=== PATIENT | male | born 1970 | race Caucasian/White ===

== ENCOUNTER 2020-03-30 06:22 | Outpatient (REF) | payer BC, SELFPAY ==
[2020-03-30 11:52] LABS: Alanine Aminotransferase 31 U/L (0-40); Albumin Level 4.5 g/dL (3.5-5.0); Alkaline Phosphatase 66 U/L (39-117); Anion Gap 13 (12-20); Aspartate Amino Transferase 20 U/L (5-37); Bilirubin Total 0.4 mg/dL (0.0-1.0); Blood Urea Nitrogen 12 mg/dL (9-16); Calcium 9.3 mg/dL (8.4-10.2); Carbon Dioxide 26 mmol/L (22-29); Chloride 105 mmol/L (96-108); Cholesterol 204 mg/dL; Estimated Glomerular Filt Rate > 60; Glucose Fasting 108 mg/dL (60-99); HDL Cholesterol 44 mg/dL; LDL Cholesterol Calculated 123 mg/dl; Potassium 4.1 mmol/l (3.3-5.1); Sodium 140 mmol/L (135-145); Total Protein 7.4 g/dL (6.5-8.0); Triglycerides 188 mg/dL
[2020-03-30 11:57] LABS: Prostate Specific Antigen Scr 1.84 ng/mL (<0.05-4.0); TSH reflex Free T4 1.96 mIU/mL (0.32-4.0)
[2020-04-04 21:58] LABS: Testosterone, Total 302 ng/dL (250-1100)
== END 2020-03-30 06:23 | disposition home or self-care (01) ==
LOC: HO.HMGCLDS 06:22
PROVIDERS: PCP Nurse Practitioner Family; Visit Provider Nurse Practitioner Family
DX: Z00.00 Encounter for general adult medical examination without abnormal findings (principal); Z12.5 Encounter for screening for malignant neoplasm of prostate; N52.9 Male erectile dysfunction, unspecified
CPT/HCPCS: 80053; 80061; 84153; 84403; 84443

== ENCOUNTER → 2020-04-15 13:11 | Outpatient (BNVA) | payer BC, SELFPAY | PROVIDERS: PCP Nurse Practitioner Family; Visit Provider Physician Assistant | DX: Z76.89 Persons encountering health services in other specified circumstances (principal) ==

== ENCOUNTER 2020-05-04 09:23 | Outpatient (REF) | payer BC, SELFPAY ==
--- NOTE | 2020-05-04 09:44 | FL_ITS ---
EXAMINATION: FL BARIUM SWALLOW CLINICAL INFORMATION: Dysphagia COMPARISON: None TECHNIQUE: Barium swallow examination is performed using fluoroscopic evaluation in addition to multiple fluoroscopic spot views. The patient is imaged both upright and prone and using both thick and thin sulfate along with effervescent granules. Fluoroscopy time: 2.2 minutes DAP: 14.9 Gycm2 Images: 43 FINDINGS: Following oral administration of thick barium and barium-coated turkey in upright view, there is normal propagation bolus from the oral cavity through the pharynx, esophagus into stomach without any evidence of obstruction, narrowing, or stricture. On placing patient prone lying and oral administration of thin barium, there is good distention of the esophagus without any intrinsic or extrinsic compression. There is a small sliding hiatal hernia without gastroesophageal reflux. FL/FL barium swallow IMPRESSION: Small sliding hiatal hernia. No gastroesophageal reflux seen.
== END 2020-05-04 09:24 | disposition home or self-care (01) ==
LOC: HO.XRAY 09:23
PROVIDERS: Visit Provider Nurse Practitioner Family
DX: R13.10 Dysphagia, unspecified (principal)
CPT/HCPCS: 74220

== ENCOUNTER 2020-05-11 08:42 | Day surgery (SDC) | payer BC, SELFPAY ==
[2020-05-03 17:28] VITALS: BMI 28.5
--- NOTE | 2020-05-10 08:46 | HO.ANESPROP2 ---
Documented by User: Tonya Yarbrough 05/10/20 08:47 HPI - Anesthesia Eval Consult details Narrative: 50yo M for Upper Endoscopy and Colonoscopy [facility] Active Problems Active Problems: All Active Problems (Updated 04/19/20 @ 17:48 by Alberto Luis, [facility]) Dysphagia (Acute) Screening for colon cancer (Acute) Screening PSA (prostate specific antigen) (Acute) Physical exam (Acute) Erectile dysfunction (Acute) Dyslipidemia (Acute) Low testosterone (Acute) Family History Family History Mother Diabetes Maternal Grandmother Breast cancer Father Prostate cancer Maternal Aunt Breast cancer Surgical History Surgical History H/O spinal fusion Social History Social History Alcohol intake: current Alcohol intake frequency: a few times a month Smoking Status: Current every day smoker Cigarettes Per Day: 5 Years Smoked: 14 YEARS Smoked in Last 30 Days: Yes Use of substances other than those prescribed or required for medical reasons: No Advance Directives: No Advance Directives Information Provided: No Advance Directives on File: No Recently lost weight without trying: No Current occupational status: employed Meds Allergies Allergy/AdvReac Type Severity Reaction Status Date / Time No Known Allergies Allergy Verified 03/25/20 14:34 Exam Exam Date and Time: May 10, 2020 0846 Height,Weight and Vital Signs: Height 6 ft Weight 95.254 kg Pertinent Lab Results Pertinent Lab Results: Laboratory Tests 03/30/20 06:26 Sodium 140 Potassium 4.1 Chloride 105 Carbon Dioxide 26 BUN 12 Creatinine 1.23 Assessment and Plan Assessment Anesthesia Assessment: Chart Reviewed Documented by User: Sreekanth Merchant 05/11/20 09:07 PMFSH Family History Family History Mother Diabetes Maternal Grandmother Breast cancer Father Prostate cancer Maternal Aunt Breast cancer Surgical History Surgical History H/O spinal fusion Social History Social History Alcohol intake: current Alcohol intake frequency: a few times a month Smoking Status: Current every day smoker Cigarettes Per Day: 5 Years Smoked: 14 YEARS Smoked in Last 30 Days: Yes Use of substances other than those prescribed or required for medical reasons: No Advance Directives: No Advance Directives Information Provided: No Advance Directives on File: No Recently lost weight without trying: No Current occupational status: employed Meds Allergies Allergy/AdvReac Type Severity Reaction Status Date / Time No Known Allergies Allergy Verified 03/25/20 14:34 Exam Airway Mallampati Class: II TM Dist: >3cm Neck ROM: Full
[2020-05-11 08:49] VITALS: BP 101/66; PULSE 71; RESP 20; TEMP 36.6; O2SAT 96
[2020-05-11] MEDS: Lactated Ringers 1,000 ML 100 ML IVCONT (09:07)
--- NOTE | 2020-05-11 10:19 | P.OP_ITS ---
Operative Note Operative Note Date of Service: 05/11/20 Narrative: Pre-op diagnosis: Colon cancer screening, dysphagia, atypical chest pain Post-op diagnosis: other (colon polyps, diverticulosis, esophageal stricture, hiatal hernia, gastritis, duodenitis with duodenal nodule) Procedure: FLEXIBLE TRANSORAL UPPER GASTROINTESTINAL ENDOSCOPY WITH BIOPSIES AND ESOPHAGEAL BALLOON DILATION AND COLONOSCOPY TO CECUM WITH BIOPSY, SNARE POLYPECTOMY AND SUBMUCOSAL INJECTION UPPER ENDOSCOPY Consent: Indications for the procedure and potential complications of bleeding, perforation, reaction to medications and missed diagnosis were discussed with the patient and informed consent was obtained. Instrument: Olympus GIF H 190 mid size upper endoscope Monitoring: Vital signs and clinical assessment, continuous EKG monitoring, Pulse oximetry, Carbon Dioxide monitoring and blood pressure monitoring were done throughout the procedure. Procedure: The patient was placed in the left lateral decubitis position and pre-procedure medications were administered and a bite block was placed. The endoscope was inserted into the mouth and advanced under direct vision to the third part of duodenum. A careful inspection was made as the upper endoscope was withdrawn including a retroflexed examination of the proximal stomach; Findings and interventions are described below. Findings: Larynx: Normal Esophagus: Tortuous esophagus with increased tertiary contractions - biopsies obtained from proximal esophagus to check for EOE. GE junction at 36 cms, hiatla hernia 36 to 39 cms. Focal stricture at GE junction with focal inflammation - biopsies obtained. Stricture was dilated with 18 and 19 mm CRE balloon for 60 seconds at each level. . Stomach: Mild gastric erythema. Biopsies were obtained. Grade 3 flap valve on retroflexed examination of the cardia. Duodenum: Duodenitis in the bulb with benign-appearing 4-5 mm nodules - biopsy. Normal descending duodenum Intervention: Biopsies as noted above COLONOSCOPY PROCEDURE NOTE Consent: Indications for the procedure and potential complications of bleeding, perforation, reaction to medications and missed diagnosis were discussed with the patient and informed consent was obtained. Instrument: Olympus PCF H 190 L variable stiffness pediatric colonoscope Monitoring: Vital signs and clinical assessment, intermittent blood pressure monitoring, continuous EKG monitoring, Pulse oximetry and Carbon Dioxide monitoring were done throughout the procedure. Colon withdrawl time was 30 minutes. Procedure: The patient was placed in the left lateral decubitis position and pre-procedure medications were administered. After a digital rectal examination of the ano-rectum, the video colonoscope was inserted into the rectum and advanced through the colon to the cecum. The colonoscope was slowly withdrawn in a retrograde panoramic fashion and the colon mucosa was carefully examined including a retroflexed view of the rectum. Findings and interventions are described below. Procedure Difficulty: : Without difficulty Findings: Terminal Ileum: Not evaluated Cecum: Normal Ascending Colon: A 12-15 mm flat polyp raised with 10 cc of Orise solution and removed with a hot snare. Transverse Colon: Normal Descending Colon: Moderate diverticulosis Sigmoid Colon: A 4-5 mm sessile polyp removed with the cold biopsy. Severe diverticulosis with luminal narrowing. Rectum: Two 10-12 mm sessile polyps removed with the hot snare Ano-rectum: Normal Colon preparation: Good after copious irrigation Impression and Post Procedure Diagnosis: Endoscopy Findings: ESOPHAGUS: Tortuous esophagus with increased tertiary contractions - biopsies obtained from proximal esophagus to check for EOE. GE junction at 36 cms, hiatla hernia 36 to 39 cms. Focal stricture at GE junction with focal in flammation - biopsies obtained. Stricture was dilated with 18 and 19 mm CRE balloon for 60 seconds at each level. . STOMACH: Gastritis DUODENUM: Duodenal nodules with duodenitis in the bulb Colonoscopy Findings: Four small to medium sized polyps removed Moderate to severe diverticulosis seen in the left colon Plan: Await pathology results. Pt was advised to start Omeprazole 20 mg every morning - prescription was sent to his preferred pharmacy. Patient has an appointment on 05/20/20 in the GI Clinic with JESUSITA Marques. Repeat Colonoscopy interval based on path results - in 3 years if polyps are adenomatous and 10 years if polyps are hyperplastic. Above findings were reviewed with the patient and GERD, colon polyps and diverticulosis handouts were given in the discharge area Surgeon: Jeramy León MD Anesthesia: MAC (FARIDA Carranza) Estimated blood loss (mL): 0 Pathology: other (a: duodenal nodules b: gastric antrum bx's r/o h. pylori c: esophageal stricture bx's d: proximal esophagus bx's r/o EOE e: ascending colon polyp *orise gel used* f: sigmoid p) Condition: stable Disposition: PACU
--- NOTE | 2020-05-11 10:19 | MHC.SHP ---
Pre-Procedural Eval Section A The patient is an INPATIENT: No The History & Physical has been completed within 30 days and I have reviewed it.: Yes Section B Chief Complaint: Screening Details of Present Illness: Colon cancer screening, dysphagia Allergies: Allergies Allergy/AdvReac Type Severity Reaction Status Date / Time No Known Allergies Allergy Verified 03/25/20 14:34 Review of Systems Sugical H&P ROS: Negative: Constitution, Cardiovascular and Respiratory and Yes, Specify: Gastrointestinal (dysphagia with atypical chest pain) Exam Surgical H&P Exam: Normal: Heart, Normal: Lungs, Normal: Extremities and Normal: Abdomen Plan Diagnosis/Plan: Change (EGD was added due to symptoms of dysphagia) I have reviewed the history and physical and performed a pertinent physical examination on my patient. No changes have occurred unless specified.
[2020-05-11 11:43] VITALS: BP 110/54; PULSE 68; RESP 16; TEMP 36.2; O2SAT 98
[2020-05-11 11:58] VITALS: BP 122/67; PULSE 58; RESP 18; TEMP 36.2; O2SAT 99
--- NOTE | 2020-05-11 13:14 | HO.POSTANES ---
Post Anesthesia Evaluation Post Anesthesia Evaluation Vital Signs: Vital Signs Temp Pulse Resp BP Pulse Ox 05/11/20 11:58 97.1 F 58 18 122/67 99 05/11/20 11:43 97.1 F 68 16 110/54 L 98 05/11/20 08:49 98 F 71 20 101/66 96 Anesthesia: Monitored Mental Status: Awake Pain Control: Satisfactory Nausea/Vomiting: None Hydration: Adequate Anesthesia-Related Issues: No Anes. Related Issues
== END 2020-05-11 12:30 | disposition home or self-care (01) ==
PROVIDERS: PCP Nurse Practitioner Family; Visit Provider Internal Medicine Gastroenterology
PROC: (CPT 45381; principal; 2020-05-11 09:50)
DX: Z12.11 Encounter for screening for malignant neoplasm of colon (principal); D12.2 Benign neoplasm of ascending colon; K63.5 Polyp of colon; K57.30 Diverticulosis of large intestine without perforation or abscess without bleeding; K22.2 Esophageal obstruction; K29.80 Duodenitis without bleeding
CPT/HCPCS: 45381; 45385; 45380; 43249; 43239; 88305; 88342; C1726

== ENCOUNTER → 2020-05-20 11:00 | Outpatient (BNVA) | payer BC, SELFPAY | PROVIDERS: PCP Nurse Practitioner Family; Visit Provider Physician Assistant ==

== ENCOUNTER → 2020-06-02 09:31 | Outpatient (BNVA) | payer BC, SELFPAY | PROVIDERS: PCP Nurse Practitioner Family; Visit Provider Urology ==

== ENCOUNTER 2021-09-22 12:39 | Outpatient (REF) | payer BC, SELFPAY ==
[2021-09-22 14:00] LABS: Appearance Urine CLEAR; Color Urine YELLOW; Glucose Urine UA NEG (NEG); Leukocyte Esterase Urine NEG (NEG); Nitrite Urine NEG (NEG); PH 5.5 (5.0-8.0); Specific Gravity - Urine 1.025 (1.005-1.025); Urine Blood NEG (NEG); Urine Ketones NEG (NEG); Urine Protein NEG (NEG-TRACE)
[2021-09-22 14:40] LABS: Alanine Aminotransferase 32 U/L (0-40); Albumin Level 4.3 g/dL (3.5-5.0); Alkaline Phosphatase 66 U/L (39-117); Anion Gap 13 (12-20); Aspartate Amino Transferase 19 U/L (5-37); Bilirubin Total 0.3 mg/dL (0.0-1.0); Blood Urea Nitrogen 15 mg/dL (9-16); Calcium 9.2 mg/dL (8.4-10.2); Carbon Dioxide 23 mmol/L (22-29); Chloride 106 mmol/L (96-108); Cholesterol 174 mg/dL; Estimated Glomerular Filt Rate > 60; Glucose Fasting 106 mg/dL (60-99); HDL Cholesterol 36 mg/dL; LDL Cholesterol Calculated 85 mg/dl; Potassium 4.1 mmol/L (3.3-5.1); Sodium 138 mmol/L (135-145); Total Protein 7.3 g/dL (6.5-8.0); Triglycerides 265 mg/dL
[2021-09-22 15:02] LABS: Prostate Specific Antigen Scr 1.53 ng/mL (<0.05-4.0); TSH reflex Free T4 1.47 uIU/mL (0.32-4.0)
== END 2021-09-22 12:40 | disposition home or self-care (01) ==
LOC: HO.HMGCLDS 12:39
PROVIDERS: PCP Nurse Practitioner Family; Visit Provider Nurse Practitioner Family
DX: Z00.00 Encounter for general adult medical examination without abnormal findings (principal); Z12.5 Encounter for screening for malignant neoplasm of prostate
CPT/HCPCS: 36415; 80053; 80061; 81003; 84153; 84443

== ENCOUNTER 2021-12-01 11:53 | Outpatient (REF) | payer BC, SELFPAY ==
--- NOTE | ~2021-12-01 | XR_ITS ---
EXAMINATION: XR FOOT, LEFT CLINICAL INFORMATION: Assess for retained foreign body. COMPARISON: None TECHNIQUE: AP, lateral, and oblique views of the left foot. FINDINGS: There is no acute fracture or dislocation. The joint spaces are unremarkable. The tarsal bones are normally aligned. The soft tissues are unremarkable. No radiopaque foreign body. XR/XR foot LT min 3V IMPRESSION: Unremarkable left foot. No radiopaque foreign body.
[2021-12-03 19:07] LABS: A. Phagocytphilium DNA,RT-PCR NOT DETECTED (NOT DETECTED); Babesia Microti DNA, RT-PCR NOT DETECTED (NOT DETECTED); Borrelia Miyamotoi,DNA RT-PCR NOT DETECTED (NOT DETECTED); E.Chaffeensis DNA RT-PCR NOT DETECTED (NOT DETECTED); Lyme(Borrelia ssp)DNA RT-PCR NOT DETECTED (NOT DETECTED)
[2021-12-05 11:16] LABS: Source-Tick borne disease WHOLE BLOOD
== END 2021-12-01 11:54 | disposition home or self-care (01) ==
LOC: HO.HMGCX 11:53
PROVIDERS: Absent Provider Physician Assistant; PCP Nurse Practitioner Family; Visit Provider Nurse Practitioner Family
DX: Z18.9 Retained foreign body fragments, unspecified material (principal); T14.8XXA Other injury of unspecified body region, initial encounter; W57.XXXA Bitten or stung by nonvenomous insect and other nonvenomous arthropods, initial encounter
CPT/HCPCS: 36415; 73630; 87798; 87801

== ENCOUNTER 2021-12-24 06:31 | Outpatient (REF) | payer BC, SELFPAY ==
[2021-12-24 11:37] LABS: Alanine Aminotransferase 37 U/L (0-40); Albumin Level 4.5 g/dL (3.5-5.0); Alkaline Phosphatase 64 U/L (39-117); Anion Gap 14 (12-20); Aspartate Amino Transferase 23 U/L (5-37); Bilirubin Total 0.6 mg/dL (0.0-1.0); Blood Urea Nitrogen 15 mg/dL (9-16); Calcium 9.5 mg/dL (8.4-10.2); Carbon Dioxide 25 mmol/L (22-29); Chloride 105 mmol/L (96-108); Cholesterol 197 mg/dL; Estimated Glomerular Filt Rate > 60; Glucose Fasting 123 mg/dL (60-99); HDL Cholesterol 39 mg/dL; LDL Cholesterol Calculated 115 mg/dl; Potassium 4.3 mmol/L (3.3-5.1); Sodium 140 mmol/L (135-145); Total Protein 7.3 g/dL (6.5-8.0); Triglycerides 217 mg/dL
== END 2021-12-24 06:32 | disposition home or self-care (01) ==
LOC: HO.HMGCLDS 06:31
PROVIDERS: PCP Nurse Practitioner Family; Visit Provider Nurse Practitioner Family
DX: E78.5 Hyperlipidemia, unspecified (principal)
CPT/HCPCS: 36415; 80053; 80061

== ENCOUNTER 2023-01-22 12:49 | Outpatient (AMB) | payer OTHER, SELFPAY ==
[2023-01-22 13:01] VITALS: BP 120/70; PULSE 65; BMI 29.3
--- NOTE | 2023-01-22 13:01 | MHC.OFFVIS ---
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 He subsequently EKG in August which showed incomplete right bundle-branch block. He is referred for further evaluation. He said last March just prior to his with occasion he was with his and he had 3 beers and subsequently went out and had 3 draws of marijuana and subsequently came into the house and started not feeling well. His notices that he turned pale and subsequently diaphoretic and was mumbling his words. He subsequently felt like is passing out. He then was laid on the floor he does not recall this. However is called 911 and by the time he woke up he saw his sitting on him on but had weird sensation as she was very far off. However by the time paramedics arrived he had regained full consciousness. Decided not to go to the hospital at that point time. Since then he has not had similar event. He said he rarely uses marijuana and alcohol together. However he does have alcohol use which he did yesterday without any symptoms. He has not had any recurrent syncopal episodes. Denies any exertional chest pain. He says since he has been a child he gets intermittent sharp chest pain that catches his breath and last for few seconds. He does not smoke. No other significant risk factors for coronary artery disease. 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 [facility] Medical History Paronychia Barretts esophagus GERD (gastroesophageal reflux disease) Surgical History Hx of colonoscopy Hx of endoscopy H/O spinal fusion Family History Mother Diabetes Maternal Grandmother Breast cancer Father Prostate cancer Maternal Aunt Breast cancer Social History Household Members: Spouse Alcohol intake: current Alcohol intake frequency: a few times a month Patient Tobacco Use Status: Former Tobacco user Quit Date: 04/02/2021 Years Smoked: 14 YEARS e-Cigarette/Vaping Use: Never Used Second Hand Smoke Exposure: No Current occupational status: employed Cognitive needs: No Hearing needs: No Vision needs: No Review of Systems Const Denies chills, Denies daytime sleepiness, Denies fatigue, Denies fever(s), Denies frequent falls, Denies poor appetite, Denies snoring, Denies stops breathing during sleep, Denies weakness, Denies weight gain and Denies weight loss Eyes Denies loss of vision ENT Denies dizziness and Denies hearing loss Card Denies chest pain, Denies claudication, Denies leg edema, Denies lightheadedness, Denies palpitations, Denies dyspnea, Denies dyspnea on exertion and Denies orthopnea Resp Denies cough, Denies excessive phlegm production, Denies dyspnea, Denies dyspnea on exertion, Denies snoring and Denies wheezing GI Denies abdominal pain, Denies hematochezia, Denies change in bowel habits, Denies nausea and Denies vomiting Denies dysuria and Denies urinary frequency Musc Denies arthralgias, Denies muscle weakness, Denies numbness and Denies other (frequent falls) Skin/Breast Denies nail changes and Denies rash Neuro Denies Abnormal speech present, Denies dizziness, Denies frequent falls, Denies loss of vision, Denies memory loss, Denies numbness and Denies weakness Psych Denies depression and Denies memory loss Endo Denies fatigue and Denies palpitations Ambrose/Lymph Reports easy bruising and Reports other (anemia) Aller/Immun Denies wheezing Physical Exam Vital Signs: Last Vital Signs Pulse 65 01/22/23 13:01 BP 120/70 01/22/23 13:01 BMI result Body Mass Index 29.3 Const General: cooperative, comfortable, no acute distress, alert, awake and Physically active Nutritional Appearance: overweight Orientation/consciousness: patient oriented x3 Limitations: no limitations HEENT Head: Yes normocephalic and Yes atraumatic Neck Neck: Yes trachea midline, Yes supple and Yes no JVD Resp Effort & Inspection: normal respiratory effort Auscultation: clear to auscultation bilaterally Cardio Jugular venous distension: no JVD Palpation: normal PMI Rate: regular rate Rhythm: regular rhythm Heart sounds: S1 normal heart sound present, S2 normal heart sound present, no click, no gallops, no murmurs and no rubs GI Auscultation: normal bowel sounds Skin General skin exam: no rashes or lesions noted Neuro General: patient oriented x3 and no focal motor deficits Speech: No Abnormal speech present Extrem General: Yes no clubbing, cyanosis or edema Office Procedures EKG Details: EKG shows normal sinus rhythm with normal EKG [id number], Complete Assessment & Plan Assessment & Plan (1) Syncope: Code(s): R55 - Syncope and collapse Plan: Syncopal episode in this middle-aged man, most likely vasovagal/orthostatic with combined use of both alcohol and marijuana causing visitation probably from dehydration with all of these factors coming together. This mechanism was discussed with him. He has EKG shows incomplete right bundle-branch block which is not significantly pathologic and today's EKG showing normal sinus rhythm with normal EKG with normal axis and normal intervals. He has had no recurrent episodes since then. I would suggest echocardiogram to evaluate for cardiac structure and function. If this is negative no further workup is indicated unless he has recurrent episodes. Advised to maintain adequate hydration. Advised to avoid alcohol marijuana use to the other. We discussed about further risk stratification with coronary calcium score. He will think about it. Will follow up in the clinic if need be. Thank you for allowing me to partake in his care Orders: Orders CA echo transthoracic complete Today R55 - Syncope and collapse Coding Level of Care Code New Pt Level 4 (63740) Diagnoses Syncope R55 CPT Codes EKG - CPT: 31562-[id number], Complete ([id number])
== END 2023-01-22 13:39 | disposition home or self-care (01) ==
PROVIDERS: PCP Nurse Practitioner Family; Visit Provider Internal Medicine Cardiovascular Disease
DX: R55 Syncope and collapse (principal)
CPT/HCPCS: 93010; 99204

== ENCOUNTER → 2023-01-22 12:49 | Outpatient (BNVA) | payer OTHER, SELFPAY | PROVIDERS: PCP Nurse Practitioner Family; Visit Provider Internal Medicine Cardiovascular Disease | DX: R55 Syncope and collapse (principal) | CPT/HCPCS: 93005 ==

== ENCOUNTER 2023-07-07 06:48 | Outpatient (REF) | payer BC, SELFPAY ==
[2023-07-07 11:06] LABS: Appearance Urine Clear; Color Urine Yellow; Glucose Urine UA Negative (Negative); Leukocyte Esterase Urine Negative (Negative); Nitrite Urine Negative (Negative); Specific Gravity - Urine 1.015 (1.005-1.025); Urine Blood Negative (Negative); Urine Ketones Negative (Negative); Urine Protein Negative (Neg-Trace)
[2023-07-07 11:22] LABS: Basophils Absolute Auto 0.1 X10*3/uL (0.0-0.2); Basophils Percent Auto 0.6 % (0-2); Eosinophils Absolute Auto 0.2 X10*3/uL (0.0-0.4); Eosinophils Percent Auto 1.9 % (0-4); Hematocrit 46.7 % (42.0-52.0); Hemoglobin 15.3 g/dl (14.0-18.0); Imm Gran Abs Auto 0.04 X10*3/uL (0.00-0.03); Imm Gran Pct Auto 0.5 % (0.0-0.4); Lymphocytes Absolute Auto 2.3 X10*3/uL (1.2-4.9); Lymphocytes Percent Auto 27.3 % (20-40); MANUAL DIFF FLAG NO; Mean Corpuscular HGB Conc 32.8 g/dl (31.0-36.0); Mean Corpuscular Hemoglobin 28.8 pg (27.0-33.0); Mean Corpuscular Volume 87.8 fL (80.0-98.0); Mean Platelet Volume 11.2 fL (9.4-12.4); Monocytes Absolute Auto 0.6 X10*3/uL (0.1-1.2); Monocytes Percent Auto 7.7 % (2-11); Neutrophils Absolute Auto 5.1 x10*3/uL (2.0-8.3); Platelet Count 257 X10*3/uL (160-400); Red Blood Count 5.32 X10*6/uL (4.60-5.80); Red Cell Distribution Width 13.2 % (11.0-16.0); White Blood Count 8.3 X10*3/uL (4.8-10.8)
[2023-07-07 11:42] LABS: Alanine Aminotransferase 25 U/L (0-40); Albumin Level 4.2 g/dL (3.5-5.0); Alkaline Phosphatase 66 U/L (39-117); Anion Gap 12 (12-20); Aspartate Amino Transferase 21 U/L (5-37); Bilirubin Total 0.7 mg/dL (0.0-1.0); Blood Urea Nitrogen 12 mg/dL (9-16); Calcium 9.4 mg/dL (8.4-10.2); Carbon Dioxide 26 mmol/L (22-29); Chloride 106 mmol/L (96-108); Cholesterol 194 mg/dL (<200); Estimated Glomerular Filt Rate > 60; Glucose Fasting 111 mg/dL (60-99); HDL Cholesterol 35 mg/dL (>40); LDL Cholesterol Calculated 121 mg/dL (<100); Potassium 3.9 mmol/L (3.3-5.1); Sodium 140 mmol/L (135-145); Total Protein 7.5 g/dL (6.5-8.0); Triglycerides 194 mg/dL (<150)
[2023-07-07 12:00] LABS: TSH reflex Free T4 1.26 uIU/mL (0.32-4.0)
== END 2023-07-07 06:49 | disposition home or self-care (01) ==
LOC: HO.HMGCLDS 06:48
PROVIDERS: PCP Nurse Practitioner Family; Visit Provider Nurse Practitioner Family
DX: Z13.6 Encounter for screening for cardiovascular disorders (principal); R73.03 Prediabetes
CPT/HCPCS: 36415; 80053; 80061; 81003; 84443; 85025

== ENCOUNTER 2023-11-21 07:46 | Outpatient (AMB) | payer SELFPAY ==
--- NOTE | 2023-11-21 07:21 | MHC.PC.OV ---
Intake Visit Reasons: blood work result questions from 07/12/23 Allergies No Known Allergies Allergy (Verified 09/26/22 16:59) Tobacco use date assessed: 09/26/22 Dental Screening Dental Screen Date: 09/26/22 HPI blood work result questions from 07/12/23 HPI Details Pt is prediabetic, last A1C was 6.4. Will order labs. Denies polyuria, polydipsia, and neuropathy. Dyslipidemia: Will order labs. Pt is following up with urology due to enlarged prostate. PSA was mentioned in their note, though I am unable to find results, will track this down. Will order PSA myself as well. [facility] Medical History Microscopic hematuria Paronychia Barretts esophagus GERD (gastroesophageal reflux disease) Surgical History History of vasectomy Hx of colonoscopy Hx of endoscopy H/O spinal fusion Family History Mother Diabetes Maternal Grandmother Breast cancer Father Prostate cancer Maternal Aunt Breast cancer Social History Household Members: Spouse Alcohol intake: current Alcohol intake frequency: a few times a month Patient Tobacco Use Status: Former Tobacco user Years Smoked: 14 YEARS e-Cigarette/Vaping Use: Never Used Second Hand Smoke Exposure: No Current occupational status: employed Cognitive needs: No Hearing needs: No Vision needs: No Questionnaire Thrive Questionnaire Date Thrive assessed: 03/31/21 VICTORIA-7 AMB Questionnaire VICTORIA-7 Date VICTORIA - 7 assessed: 03/31/21 Source: Developed by Drs. Josh Martinez, Luz Mejia, Cyril Davidson and colleagues, with an educational dayan from [employer]. Review of Systems Const Reports as per [facility] Physical exam (Primary Care) Tobacco/Smoking Status: Tobacco use Status Tobacco use date assessed 09/26/22 11/21/23 07:22 Patient Tobacco Use Status Former Tobacco user 11/21/23 07:22 e-Cigarette/Vaping Use Never Used 11/21/23 07:22 Thrive Assessment: Date of Thrive Assessment Date Thrive assessed 03/31/21 11/21/23 07:22 Const General: cooperative Orientation/consciousness: patient oriented x3 Neuro General: patient oriented x3 Psych Appearance: grossly normal Mental Status: mental status grossly normal Speech and movement: Clear speech present Affect: normal affect Attitude: cooperative Thought process: Normal thought process present Thought content: Normal thought content present Insight: Good insight present (Psych) Judgement: Good judgement present (Psych) Telehealth Telehealth Telehealth Platform: [facility] Location of provider rendering services: practice address Location of patient: address on file Patient Identification confirmed using: Name, : Yes Telehealth method: video Patient verbally consented to treatment: Yes Patient verbally consented to billing insurance company: Yes Patient informed of any privacy concerns related to visit: Yes Minutes spent on Phone/Video with Pt.: 10 Assessment and Plan Assessment & Plan (1) Dyslipidemia: Code(s): E78.5 - Hyperlipidemia, unspecified Plan: Labs ordered (2) Screening PSA (prostate specific antigen): Code(s): Z12.5 - Encounter for screening for malignant neoplasm of prostate Plan: PSA ordered (3) Prediabetes: Code(s): R73.03 - Prediabetes Plan: Labs ordered Plan The patient agreed to the use of a medical claims specialist for this encounter. Scribed for PEÑA Wetzel by Shea Longoria medical claims specialist, on 11/21/2023 at 07:20 EST. Orders: Orders Complete Blood Count Auto Diff Today E78.5 - Hyperlipidemia, unspecified TSH reflex Free T4 Today E78.5 - Hyperlipidemia, unspecified Comprehensive [place]. Panel Fast Today E78.5 - Hyperlipidemia, unspecified Lipid Panel Today E78.5 - Hyperlipidemia, unspecified UA CC w/rflx Micro + Cult Today E78.5 - Hyperlipidemia, unspecified Prostate Specific Antigen Scr Today Z12.5 - Encounter for screening for malignant neoplasm of prostate Hemoglobin A1c Today R73.03 - Prediabetes Coding Level of Care Code Tele Est Pt Level 3 (47684) Diagnoses Dyslipidemia E78.5 Screening PSA (prostate specific antigen) Z12.5 Prediabetes R73.03
== END 2023-11-21 07:47 | disposition home or self-care (01) ==
LOC: HO.HMGC 07:46
PROVIDERS: PCP Nurse Practitioner Family; Visit Provider Nurse Practitioner Family
DX: E78.5 Hyperlipidemia, unspecified (principal); Z12.5 Encounter for screening for malignant neoplasm of prostate; R73.03 Prediabetes
CPT/HCPCS: 99441

== ENCOUNTER 2024-04-10 16:00 | Outpatient (AMB) | payer OTHER, SELFPAY ==
[2024-04-10 16:07] VITALS: BP 122/70; PULSE 78; O2SAT 98; BMI 27.8
--- NOTE | 2024-04-10 16:07 | MHC.PC.OV ---
Vital Signs 04/10/24 16:07 Height 6 ft Weight 205 lb BMI 27.8 BP 122/70 Blood Pressure Location Lt brachial Position Sitting Pulse 78 Pulse Source Pulse Oximeter Pulse Oximetry (%) 98 Oxygen Delivery Method Room Air Intake Visit Reasons: annual Intake Note: pt is here for annual exam Rn Mobile Required: No Accompanied by: Self / Same As Patient Allergies No Known Allergies Allergy (Verified 04/10/24 16:07) Medication List - Last Reconciled 04/10/24 by ZULEYKA Meeks pantoprazole 40 mg PO DAILY Tobacco use date assessed: 04/10/24 Dental Screening Dental Screen Date: 04/10/24 Did you have a dental visit in the last 12 months?: Yes Did you have a dental problem in the last 6 months where you did not have access to dental care?: No Was dental information given to patient?: Patient has dentist HPI annual HPI Details History of Present Illness The patient is a 53-year-old male presenting for an annual physical examination. During the visit, he reported experiencing erectile dysfunction (ED) symptoms. The history indicates he has not seen his urologist in some time. The patient denies any other related urinary symptoms. Visible Measures Maintenance colon screen is up to date refuses flu vaccine Social History Review of Systems - Cardiovascular: Denies chest pain. - Respiratory: Denies shortness of breath. - Gastrointestinal: Denies blood in stool, constipation, diarrhea. - Genitourinary: Denies urinary symptoms but reports erectile dysfunction. Physical Exam General: Cooperative, healthy appearing, comfortable, no acute distress and well developed Orientation: Patient oriented x3 Limitations: No limitations Head: Normal to inspection Ears: Hearing grossly normal bilaterally Nose: Normal external nose present Face and sinus: Normal facial exam Eyes: Appearance normal, both eyes and all related structures Neck: Normal visual inspection and Yes full ROM Respiratory: Normal respiratory effort and able to speak in complete sentences. Clear to auscultation bilaterally Cardiovascular: Regular rate and rhythm. Normal S1 and S2 GI: Normal to inspection. Soft to palpation and nontender Skin: No rashes. skin tags noted, mostly to bilat axillary regions (range in size) Neuro: Patient oriented x3 Extremities: Normal to inspection Results Plan - Order a Prostate-Specific Antigen PSA) test to assess prostate health as the patient has not consulted with his urologist for some time. - Order a testosterone level test due to reported erectile dysfunction. Patient was informed and verbally consented to the use of an ambient scribe for clinic note documentation during this visit. Discussion Notes Patient Instructions - Complete the ordered laboratory tests for PSA and testosterone. - Follow up with the results of the tests as directed. - Schedule an appointment with a urologist for further evaluation if advised after the test results. COUNTS INCLUDE 234 BEDS AT THE [facility] Medical History Microscopic hematuria Paronychia Barretts esophagus GERD (gastroesophageal reflux disease) Surgical History History of vasectomy Hx of colonoscopy Hx of endoscopy H/O spinal fusion Family History Mother Diabetes Maternal Grandmother Breast cancer Father Prostate cancer Maternal Aunt Breast cancer Social History Household Members: Spouse Alcohol intake: current Alcohol intake frequency: a few times a month Patient Tobacco Use Status: Former Tobacco user Years Smoked: 14 YEARS e-Cigarette/Vaping Use: Never Used Second Hand Smoke Exposure: No Current occupational status: employed Cognitive needs: No Hearing needs: No Vision needs: No Questionnaire PHQ-9 Over the last 2 weeks, how often have you been bothered by any of the following problems? 1. Little interest or pleasure in doing things: not at all 2. Feeling down, depressed, or hopeless: not at all 3. Trouble falling or staying asleep, or sleeping too much: not at all 4. Feeling tired or having little energy: not at all 5. Poor appetite or overeating: not at all 6. Feeling bad about yourself - or that you are a failure or have let yourself or your family down: not at all 7. Trouble concentrating on things, such as reading the newspaper or watching television: not at all 8. Moving or speaking so slowly that other people could have noticed. Or the opposite - being so fidgety or restless that you have been moving around a lot more than usual: not at all 9. Thoughts that you would be better off or of hurting yourself in some way: not at all Total score: 0 Depression Screening Interpretation: Negative Depression Screening Done: Yes 50226 - PHQ-9 Billing: Yes Source: Developed by Drs. Josh Martinez, Luz Mejia, Cyril Davidson and colleagues, with an educational dayan from [employer]. Thrive Questionnaire Date Thrive assessed: 04/10/24 I am a: Patient What is your living situation today?: I have a steady place to live Within the past 12 months, did the food you bought not last and you didn't have the money to get more?: Sometimes True Within the past 12 months, did you worry whether your food would run out before you got money to buy more?: Sometimes True Do you have trouble paying for medicines?: Yes Do you have trouble getting transportation to medical appointments?: No Do you have trouble paying your heating and electricity bill?: No Do you have trouble taking care of your child, family member or friend?: No Do you have trouble with day-to-day activities such as bathing, preparing meals, shopping, managing finances, etc.?: No Are you currently unemployed and looking for a job?: No Are you interested in more education?: Yes Please select the resources that you would like help with: Food, Paying for medicine and Education Currently or been in a relationship where the following occur: No concerns reported THRIVE Score: 2 AUDIT C Alcohol Use Questionnaire (AUDIT-C) 1. How often do you have a drink containing alcohol?: 2-4 times a month 2. How many drinks containing alcohol do you have on a typical day when you are drinking?: 3 or 4 3. How often do you have six or more drinks on one occasion?: Never Total Score: 3 Score Reviewed/Action Taken: Yes VICTORIA-7 AMB Questionnaire VICTORIA-7 Date VICTORIA - 7 assessed: 04/10/24 Feeling nervous, anxious, or on edge: 1 = Several days Not being able to stop or control worryin = Several days Worrying too much about different things: 1 = Several days Trouble relaxin = Several days Being so restless that it is hard to sit still: 0 = Not at all Becoming easily annoyed or irritable: 1 = Several days Feeling afraid as if something awful might happen: 0 = Not at all Total VICTORIA-7 score (0-4 normal; 5-9 mild; 10-14 moderate; 15-21 severe): 5 Source: Developed by Drs. Josh Martinez, Luz Mejia, Cyril Davidson and colleagues, with an educational dayan from [employer]. VICTORIA-7 Assessment Billing VICTORIA-7 Assessment Tool: VICTORIA-7 Assessment 29902 Physical exam (Primary Care) Vital Signs: Last Vital Signs Pulse 78 04/10/24 16:07 BP 122/70 04/10/24 16:07 Pulse Ox 98 04/10/24 16:07 Oxygen Delivery Method Room Air 04/10/24 16:07 BMI result Body Mass Index 27.8 Tobacco/Smoking Status: Tobacco use Status Tobacco use date assessed 04/10/24 04/10/24 16:13 Patient Tobacco Use Status Former Tobacco user 04/10/24 16:13 e-Cigarette/Vaping Use Never Used 04/10/24 16:13 PHQ-9: PHQ-9 Score PHQ-9: Total score 0 04/10/24 16:13 Depression Screening Interpretation: Negative Thrive Assessment: Date of Thrive Assessment Date Thrive assessed 04/10/24 04/10/24 16:13 Currently or been in a relationship where the following occur: No concerns reported Office Procedures Skin Tag Removal Skin tag removal performed by: Alberto Luis Informed consent given: Yes Consent signed: No Location: axilla Preparation: alcohol and betadine Hemostasis: pressure Patient tolerated procedure: well Complications: No Additional details: one large and two small to left axillary/just inferior to axillary region. 1 just inferior to right axillary region. pt tolerated well, pressure, bandaid and bacitracin applied Coding Level of Care Code Est Pt Prev Care 40-64y(53769) Diagnoses Physical exam Z00.00 Screening PSA (prostate specific antigen) Z12.5 Erectile dysfunction N52.9 Skin tag L91.8 Additional Codes VICTORIA-7 Assessment Billing - VICTORIA-7 Assessment Tool: VICTORIA-7 Assessment 69444 ([id number]) PHQ-9 - 09514 - PHQ-9 Billing: Yes ([id number]) Assessment & Plan Assessment & Plan (1) Physical exam: Code(s): Z00.00 - Encounter for general adult medical examination without abnormal findings Category: Medical (2) Screening PSA (prostate specific antigen): Code(s): Z12.5 - Encounter for screening for malignant neoplasm of prostate Category: Medical (3) Erectile dysfunction: Code(s): N52.9 - Male erectile dysfunction, unspecified Category: Medical (4) Skin tag: Code(s): L91.8 - Other hypertrophic disorders of the skin Category: Medical Plan: easily removed, pt tolerated Plan . Orders: Orders TSH reflex Free T4 Today Z00.00 - Encounter for general adult medical examination without abnormal findings UA CC w/rflx Micro + Cult Today Z00.00 - Encounter for general adult medical examination without abnormal findings Complete Blood Count Auto Diff Today Z00.00 - Encounter for general adult medical examination without abnormal findings Comprehensive [place]. Panel Fast Today Z00.00 - Encounter for general adult medical examination without abnormal findings Lipid Panel Today Z00.00 - Encounter for general adult medical examination without abnormal findings Prostate Specific Antigen Scr Today Z12.5 - Encounter for screening for malignant neoplasm of prostate Testosterone, Free/Total Today N52.9 - Male erectile dysfunction, unspecified Medications: Refilled pantoprazole 40 mg PO DAILY 90 tabs 4RF
== END 2024-04-10 17:00 ==
PROVIDERS: PCP Nurse Practitioner Family; Visit Provider Nurse Practitioner Family
DX: Z00.00 Encounter for general adult medical examination without abnormal findings (principal); Z12.5 Encounter for screening for malignant neoplasm of prostate; N52.9 Male erectile dysfunction, unspecified; L91.8 Other hypertrophic disorders of the skin

== ENCOUNTER → 2024-04-10 16:00 | Outpatient (BNVA) | payer SELFPAY | PROVIDERS: PCP Nurse Practitioner Family; Visit Provider Nurse Practitioner Family | DX: Z00.01 Encounter for general adult medical examination with abnormal findings (principal); L91.8 Other hypertrophic disorders of the skin; N52.9 Male erectile dysfunction, unspecified | CPT/HCPCS: 11200; 96127 ==

== ENCOUNTER 2024-04-12 06:56 | Outpatient (REF) | payer OTHER, SELFPAY ==
[2024-04-12 11:19] LABS: MANUAL DIFF FLAG NO
[2024-04-12 11:26] LABS: Appearance Urine Clear; Color Urine Yellow; Glucose Urine UA Negative (Negative); Leukocyte Esterase Urine Negative (Negative); Nitrite Urine Negative (Negative); PH 5.5 (5.0-9.0); Specific Gravity - Urine 1.015 (1.005-1.025); Urine Blood Negative (Negative); Urine Ketones Negative (Negative); Urine Protein Negative (Neg-Trace)
[2024-04-12 11:36] LABS: Basophils Percent Auto 0.4 % (0-2); Eosinophils Absolute Auto 0.2 X10*3/uL (0.0-0.4); Eosinophils Percent Auto 2.5 % (0-4); Hemoglobin 15.2 g/dl (14.0-18.0); Imm Gran Abs Auto 0.02 X10*3/uL (0.00-0.03); Imm Gran Pct Auto 0.2 % (0.0-0.4); Lymphocytes Absolute Auto 2.2 X10*3/uL (1.2-4.9); Lymphocytes Percent Auto 24.1 % (20-40); Mean Corpuscular Hemoglobin 29.1 pg (27.0-33.0); Monocytes Absolute Auto 0.7 X10*3/uL (0.1-1.2); Monocytes Percent Auto 7.5 % (2-11); Neutrophils Absolute Auto 5.9 x10*3/uL (2.0-8.3); Neutrophils Percent Auto 65.3 % (45-73); Platelet Count 247 X10*3/uL (160-400); Red Blood Count 5.23 X10*6/uL (4.60-5.80); Red Cell Distribution Width 12.8 % (11.0-16.0); White Blood Count 9.1 X10*3/uL (4.8-10.8)
[2024-04-12 11:47] LABS: Alanine Aminotransferase 30 U/L (0-40); Albumin Level 4.3 g/dL (3.5-5.0); Alkaline Phosphatase 60 U/L (39-117); Anion Gap 8 (12-20); Aspartate Amino Transferase 25 U/L (5-37); Bilirubin Total 0.6 mg/dL (0.0-1.0); Blood Urea Nitrogen 12 mg/dL (9-16); Calcium 9.4 mg/dL (8.4-10.2); Carbon Dioxide 26 mmol/L (22-29); Chloride 110 mmol/L (96-108); Cholesterol 175 mg/dL (<200); Estimated Glomerular Filt Rate > 60; Glucose Fasting 104 mg/dL (60-99); HDL Cholesterol 41 mg/dL (>40); LDL Cholesterol Calculated 111 mg/dL (<100); Potassium 4.4 mmol/L (3.3-5.1); Sodium 140 mmol/L (135-145); Total Protein 7.4 g/dL (6.5-8.0); Triglycerides 118 mg/dL (<150)
[2024-04-12 12:05] LABS: TSH reflex Free T4 1.11 uIU/mL (0.32-4.0)
[2024-04-17 21:57] LABS: Testosterone, Free 57.6 pg/mL (35.0-155.0); Testosterone, Total 337 ng/dL (250-1100)
== END 2024-04-12 06:57 | disposition home or self-care (01) ==
LOC: HO.HMGCLDS 06:56
PROVIDERS: PCP Nurse Practitioner Family; Visit Provider Nurse Practitioner Family
DX: Z00.00 Encounter for general adult medical examination without abnormal findings (principal); Z12.5 Encounter for screening for malignant neoplasm of prostate; N52.9 Male erectile dysfunction, unspecified
CPT/HCPCS: 36415; 80053; 80061; 81003; 84153; 84402; 84403; 84443; 85025